=== PATIENT | female | born 2000 | race Caucasian/White ===

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

== ENCOUNTER → 2021-06-02 | Outpatient (CLI) | payer BC, MEDICAID ==
[~2021-06-02] MED LIST: EPIN0.3P3 INJ; ESOM20TA PO; FLT11013 INH; GUAN3TAB PO; GUAN3TAB2 PO; HYDR-700 PO; IBUP-30 PO; LORA10TA76 PO; RT-ALBUINH INH; SERT-413 PO; SERT-414 PO; SERT100T PO
--- NOTE | 2021-06-02 18:06 | Diagnostic Imaging Report ---
EXAMINATION: Thoracic spine radiographs, 3 views. COMPARISON: None. HISTORY: 20-year-old female, mid back pain. FINDINGS: The alignment of the thoracic spine is unremarkable. There is no identified compression deformity or fracture. The thoracic disc heights appear well-preserved. IMPRESSION: Unremarkable radiographs of the thoracic spine. Dictated by: Dictated on workstation # [id number]
--- NOTE | 2021-06-02 18:06 | Diagnostic Imaging Report ---
EXAMINATION: PA chest. Right ribs, 3 views. COMPARISON: None. HISTORY: 20-year-old female, right rib and chest pain. FINDINGS: Heart size and mediastinal contours are unremarkable. There is no identified pneumothorax. There is no large pleural effusion. There is no identified focal airspace consolidation. There is a mildly displaced fracture of the right eighth rib laterally. IMPRESSION: 1. Mildly displaced fracture of the right eighth rib laterally. 2. No identified acute cardiopulmonary abnormality. Dictated by: Dictated on workstation # [id number]
== END ==
LOC: RAD 17:34
PROVIDERS: ATTEND Chiropractor
DX: S22.41XA Multiple fractures of ribs, right side, initial encounter for closed fracture (principal)
CPT/HCPCS: 71110; 72072

== ENCOUNTER 2021-06-30 01:33 | Emergency (ER) | payer BC, MEDICAID ==
[~2021-06-30] VITALS: Ht 166 cm; Wt 70.0 kg
[2021-06-30 01:42] VITALS: BP 130/93
[2021-06-30] MEDS ORDERED: LACTATED RINGERS 1,000 ML IV STA (01:52)
--- NOTE | 2021-06-30 01:55 | ED Psychosocial ---
General Chief Complaint: Substance Abuse Stated Complaint: ETOH Source: patient Exam Limitations: intoxication History of Present Illness Date Seen by Provider: June 30, 2021 Time Seen by Provider: 01:45 Initial Comments Patient is a 21-year-old female who presents to the emergency room acutely intoxicated. She is crying, dry heaving complaining of pain in her abdomen. She is a poor historian secondary to her intoxication. She keeps apologizing. She states her grandma recently. She is asking for her girlfriend. She states she drinks Des this evening. Is unable to quantify. Will not otherwise answer questions regarding HPI, review of systems, past medical family or social history. Timing/Duration: this evening Severity: severe Associated Symptoms: ingestion (Alcohol) Allergies and Home Medications Allergies Coded Allergies: No Known Drug Allergies (Unverified , 11/16/17) Patient Home Medication List Home Medication List Reviewed: Yes Albuterol Sulfate (Proair Hfa) 1 Puff Puff, 2 PUFF INH Q4H PRN for SHORTNESS OF BREATH, (Reported) Entered as Reported by: MARIBEL RUSH on 11/17/17851 Epinephrine (Epipen 2-Glen) 0.3 Mg/0.3 Ml Auto.injct, INJ UD PRN for ALLERGIES, (Reported) Entered as Reported by: MARIBEL RUSH on 11/17/17851 Esomeprazole Magnesium (Nexium 24Hr) 20 Mg Tablet.dr, 20 MG PO BID, (Reported) Entered as Reported by: MARIBEL RUSH on 11/17/17851 Fluticasone Propionate (Flovent Hfa 110 mcg) 1 Ea Aero, 1 PUFF INH BID PRN for SHORTNESS OF BREATH, (Reported) Entered as Reported by: MARIBEL RUSH on 11/17/17851 Guanfacine HCl (Guanfacine HCl ER) 3 Mg Tab.er.24h, 3 MG PO DAILY, (Reported) Entered as Reported by: MARIBEL RUSH on 11/17/17851 Hydroxyzine HCl (Hydroxyzine HCl) 25 Mg Tablet, 25 MG PO TID PRN for ANXIETY, (Reported) Entered as Reported by: MARIBEL RUSH on 11/17/17851 Ibuprofen (Advil) 200 Mg Tablet, 600-800 MG PO TID PRN for PAIN-MILD, (Reported) Entered as Reported by: MARIBEL RUSH on 11/17/17851 Loratadine (Claritin) 10 Mg Tablet, 10 MG PO DAILY, (Reported) Entered as Reported by: MARIBEL RUSH on 11/17/17851 Sertraline HCl (Sertraline HCl) 50 Mg Tablet, 50 MG PO DAILY, (Reported) Entered as Reported by: MARIBEL RUSH on 11/17/17851 Sertraline HCl (Sertraline HCl) 100 Mg Tablet, 100 MG PO DAILY, (Reported) Entered as Reported by: MARIBEL RUSH on 11/17/17851 Review of Systems Constitutional: see HPI Gastrointestinal: abdominal pain, nausea, vomiting Review of systems limited secondary to the patient's alcohol intoxication Past Gdgbgiq-Jgmtjq-Qssoof Hx Seasonal Allergies Seasonal Allergies: No Past Medical History Surgeries: No Respiratory: No Cardiac: No Neurological: No Genitourinary: No Gastrointestinal: Yes Gastroesophageal Reflux Musculoskeletal: No Endocrine: No Cancer: No Psychosocial: Yes (CUTTING. STATES NOT DONE FOR 1 YEAR.) ADD/ADHD, Anxiety, Depression Integumentary: Yes (CUT NUNEZ ON ARMS) Blood Disorders: No Physical Exam Vital Signs - First Documented 06/30/21 01:42 Pulse 102 Resp 24 B/P (MAP) 130/93 (105) Pulse Ox 99 O2 Delivery Room Air Capillary Refill : Height, Weight, BMI Height: 5'7.00" Weight: 195lbs. 6.0oz. 88.358675cu; 30.3 BMI Method: General Appearance: WD/WN, severe distress (Crying, writhing around in the bed, difficult to communicate with secondary to her intoxication) HEENT: PERRL/EOMI Neck: full range of motion Respiratory: lungs clear, normal breath sounds, no respiratory distress, no accessory muscle use Cardiovascular: regular rate, rhythm Gastrointestinal: normal bowel sounds, non tender, soft Extremities: normal range of motion, other (No obvious signs of trauma) Neurologic/Psychiatric: alert, depressed affect (Crying) Appearance/Memory: disheveled Behavior/Eye Contact: avoids eye contact, uncooperative, other (Slurred speech) Skin: normal color, other (Diaphoretic) Progress/Results/Core Measures Results/Orders Lab Results Laboratory Tests Test 06/30/21 01:50 Range/Units White Blood Count 12.9 H 4.3-11.0 10^3/uL Red Blood Count 4.73 3.80-5.11 10^6/uL Hemoglobin 15.9 11.5-16.0 g/dL Hematocrit 45 35-52 % Mean Corpuscular Volume 95 80-99 fL Mean Corpuscular Hemoglobin 34 25-34 pg Mean Corpuscular Hemoglobin Concent 35 32-36 g/dL Red Cell Distribution Width 12.5 10.0-14.5 % Platelet Count 304 130-400 10^3/uL Mean Platelet Volume 8.7 L 9.0-12.2 fL Immature Granulocyte % (Auto) 0 % Neutrophils (%) (Auto) 64 42-75 % Lymphocytes (%) (Auto) 30 12-44 % Monocytes (%) (Auto) 4 0-12 % Eosinophils (%) (Auto) 1 0-10 % Basophils (%) (Auto) 0 0-10 % Neutrophils # (Auto) 8.2 H 1.8-7.8 10^3/uL Lymphocytes # (Auto) 3.9 1.0-4.0 10^3/uL Monocytes # (Auto) 0.6 0.0-1.0 10^3/uL Eosinophils # (Auto) 0.1 0.0-0.3 10^3/uL Basophils # (Auto) 0.1 0.0-0.1 10^3/uL Immature Granulocyte # (Auto) 0.0 0.0-0.1 10^3/uL Sodium Level 141 135-145 MMOL/L Potassium Level 4.0 3.6-5.0 MMOL/L Chloride Level 109 H 98-107 MMOL/L Carbon Dioxide Level 17 L 21-32 MMOL/L Anion Gap 15 H 5-14 MMOL/L Blood Urea Nitrogen 6 L 7-18 MG/DL Creatinine 0.73 0.60-1.30 MG/DL Estimat Glomerular Filtration Rate 120 BUN/Creatinine Ratio 8 Glucose Level 106 H 70-105 MG/DL Calcium Level 9.4 8.5-10.1 MG/DL Corrected Calcium 8.5-10.1 MG/DL Total Bilirubin 0.4 0.1-1.0 MG/DL Aspartate Amino Transf (AST/SGOT) 18 5-34 U/L Alanine Aminotransferase (ALT/SGPT) 14 0-55 U/L Alkaline Phosphatase 65 40-136 U/L Total Protein 7.7 6.4-8.2 GM/DL Albumin 4.6 H 3.2-4.5 GM/DL Serum Test, Qualitative NEGATIVE NEGATIVE Serum Alcohol 201 H <10 MG/DL My Orders Orders - DOREEN ALVAREZ MD Ed Iv/Invasive Line Start (06/30/21 01:52) Comprehensive Metabolic Panel (06/30/21 01:52) Alcohol (06/30/21 01:52) Cbc With Automated Diff (06/30/21 01:52) Hcg,Qualitative Serum (06/30/21 01:52) Lactated Ringers (Lr 1000 Ml Iv Solution (06/30/21 01:52) Ondansetron Injection (Zofran Injectio (06/30/21 02:00) Pantoprazole Injection (Protonix Injecti (06/30/21 02:00) Medications Given in ED Current Medications Medications Dose Ordered Sig/Lazaro Route Start Time Stop Time Status Last Admin Dose Admin Ondansetron HCl 8 mg ONCE ONCE IVP 06/30/21 02:00 06/30/21 02:01 DC 06/30/21 02:00 8 MG Pantoprazole 40 mg ONCE ONCE IV 06/30/21 02:00 06/30/21 02:01 DC 06/30/21 02:00 40 MG Vital Signs/I&O 06/30/21 01:42 Pulse 102 Resp 24 B/P (MAP) 130/93 (105) Pulse Ox 99 O2 Delivery Room Air Progress Progress Note : Time: 03:19 Progress Note Patient feels much better after nausea medicine, Protonix and IV fluids. She has been up and ambulatory to the bathroom. Speech is clear, no confusion or disorientation. Girlfriend is at the bedside will take her home. Patient is counseled on return precautions. She is counseled on alcohol use. She is understanding. All questions are sought and answered. Departure Impression Primary Impression: Acute alcoholic intoxication Qualified Codes: F10.920 - Alcohol use, unspecified with intoxication, uncomplicated Disposition: 01 HOME, SELF-CARE Condition: Improved Departure-Patient Inst. Decision time for Depature: 03:10 Referrals: [facility] (PCP/Family) Primary Care Physician Patient Instructions: ALCOHOL AND SUBSTANCE ABUSE, Alcohol Intoxication ED Add. Discharge Instructions: Drink plenty of fluids to stay well-hydrated today. Take your acid reflux medications as prescribed. Tylenol extra strength, 2 tablets every 6 hours as needed for pain/headache. Follow-up with your primary care physician. Return to the emergency department for any new, concerning or emergent complaints. DOREEN ALVAREZ MD June 30, 2021 01:55
[2021-06-30 01:58] LABS: BASOPHILS # (AUTO) 0.1 10^3/uL (0.0-0.1); BASOPHILS % (AUTO) 0 % (0-10); EOSINOPHILS # (AUTO) 0.1 10^3/uL (0.0-0.3); EOSINOPHILS % (AUTO) 1 % (0-10); HEMATOCRIT 45 % (35-52); HEMOGLOBIN 15.9 g/dL (11.5-16.0); LYMPHOCYTES # (AUTO) 3.9 10^3/uL (1.0-4.0); LYMPHOCYTES % (AUTO) 30 % (12-44); MEAN CORPUSCULAR HEMOGLOBIN 34 pg (25-34); MEAN CORPUSCULAR HGB CONC 35 g/dL (32-36); MEAN CORPUSCULAR VOLUME 95 fL (80-99); MEAN PLATELET VOLUME 8.7 fL (9.0-12.2); MONOCYTES # (AUTO) 0.6 10^3/uL (0.0-1.0); MONOCYTES % (AUTO) 4 % (0-12); NEUTROPHILS # (AUTO) 8.2 10^3/uL (1.8-7.8); NEUTROPHILS % (AUTO) 64 % (42-75); PLATELET COUNT 304 10^3/uL (130-400); WHITE BLOOD COUNT 12.9 10^3/uL (4.3-11.0)
[2021-06-30] MEDS ORDERED: PANTOPRAZOLE 40 MG (PROTONIX) VIAL IV ONE (02:00)
[2021-06-30] MEDS ORDERED: ONDANSETRON 4 MG/2 ML (SDV) Z0FRAN IVP ONE (02:00)
[2021-06-30 02:14] LABS: ALBUMIN 4.6 GM/DL (3.2-4.5); CHLORIDE 109 MMOL/L (98-107); SODIUM 141 MMOL/L (135-145)
[2021-06-30 02:15] LABS: CALCIUM 9.4 MG/DL (8.5-10.1)
[2021-06-30 02:16] LABS: GLUCOSE 106 MG/DL (70-105); TOTAL PROTEIN 7.7 GM/DL (6.4-8.2)
[2021-06-30 02:17] LABS: CARBON DIOXIDE 17 MMOL/L (21-32)
[2021-06-30 02:18] LABS: BILIRUBIN,TOTAL 0.4 MG/DL (0.1-1.0)
[2021-06-30 02:20] LABS: ALKALINE PHOSPHATASE 65 U/L (40-136); CREATININE SERUM 0.73 MG/DL (0.60-1.30); GFR ESTIMATED 120
[2021-06-30 02:21] LABS: BUN/CREATININE RATIO 8
[2021-06-30 02:23] LABS: ALANINE AMINOTRANSFERASE 14 U/L (0-55)
== END 2021-06-30 03:30 | disposition home or self-care (01) ==
LOC: EDUNIT# 01:33 → ER 01:35
DX: F10.129 Alcohol abuse with intoxication, unspecified (principal); Y90.7 Blood alcohol level of 200-239 mg/100 ml; Z32.02 Encounter for pregnancy test, result negative
CPT/HCPCS: 80053; 84703; 85025; 99284; G0480; 36415; 80320

== ENCOUNTER 2022-06-28 08:05 | Emergency (ER) | payer BC, MEDICAID ==
[~2022-06-28] VITALS: Ht 172.7 cm; Wt 68.0 kg
[~2022-06-28 08:05] MED LIST changes: +ALBU8.5H6 INH; -RT-ALBUINH INH
--- NOTE | 2022-06-28 08:13 | ED General ---
General Stated Complaint: FALL | RIB INJ Source of Information: Patient Exam Limitations: No Limitations History of Present Illness Date Seen by Provider: June 28, 2022 Time Seen by Provider: 08:11 Initial Comments 21-year-old female presents to the emergency department today for left lower rib pain. Symptoms started on Tuesday when she was intoxicated and fell, striking a curb. She does not really recall the event but did not hit her head or lose consciousness. She states she moved this morning and felt a pop which increased her pain. He has no specific shortness of breath but it does hurt to take a deep breath. No change in bowel or bladder habits, abdominal pain. All other systems reviewed and negative except documented per HPI. Voice recognition software was used to help create this chart Allergies and Home Medications Allergies Coded Allergies: No Known Drug Allergies (Unverified , 11/16/17) Patient Home Medication List Home Medication List Reviewed: Yes Albuterol Sulfate (Ventolin Hfa) 1 Puff Puff, 2 PUFF INH Q4H PRN for SHORTNESS OF BREATH, (Reported) Entered as Reported by: MARIBEL RUSH on 11/17/17851 Epinephrine (Epipen 2-Glen) 0.3 Mg/0.3 Ml Auto.injct, INJ UD PRN for ALLERGIES, (Reported) Entered as Reported by: MARIBEL RUSH on 11/17/17851 Esomeprazole Magnesium (Nexium 24Hr) 20 Mg Tablet.dr, 20 MG PO BID, (Reported) Entered as Reported by: MARIBEL RUSH on 11/17/17851 Fluticasone Propionate (Flovent Hfa 110 mcg) 1 Ea Aero, 1 PUFF INH BID PRN for SHORTNESS OF BREATH, (Reported) Entered as Reported by: MARIBEL RUSH on 11/17/17851 Guanfacine HCl (Guanfacine HCl ER) 3 Mg Tab.er.24h, 3 MG PO DAILY, (Reported) Entered as Reported by: MARIBEL RUSH on 11/17/17851 Hydroxyzine HCl (Hydroxyzine HCl) 25 Mg Tablet, 25 MG PO TID PRN for ANXIETY, (Reported) Entered as Reported by: MARIBEL RUSH on 11/17/17851 Ibuprofen (Advil) 200 Mg Tablet, 600-800 MG PO TID PRN for PAIN-MILD, (Reported) Entered as Reported by: MARIBEL RUSH on 11/17/17851 Loratadine (Claritin) 10 Mg Tablet, 10 MG PO DAILY, (Reported) Entered as Reported by: MARIBEL RUSH on 11/17/17851 Sertraline HCl (Sertraline HCl) 50 Mg Tablet, 50 MG PO DAILY, (Reported) Entered as Reported by: MARIBEL RUSH on 11/17/17851 Sertraline HCl (Sertraline HCl) 100 Mg Tablet, 100 MG PO DAILY, (Reported) Entered as Reported by: MARIBEL RUSH on 11/17/17851 Review of Systems Review of Systems Constitutional: see HPI Past Efjscgz-Owffhn-Xcdami Hx Patient Social History Tobacco Use?: No Use of E-Cig and/or Vaping dev: No Substance use?: No Alcohol Use?: Yes Immunizations Up To Date First/Initial COVID19 Vaccinat: 2020 Second COVID19 Vaccination Heladio: 2021 Seasonal Allergies Seasonal Allergies: No Past Medical History Surgeries: No Respiratory: No Cardiac: No Neurological: No Genitourinary: No Gastrointestinal: Yes Gastroesophageal Reflux Musculoskeletal: No Endocrine: No Cancer: No Psychosocial: Yes (CUTTING. STATES NOT DONE FOR 1 YEAR.) ADD/ADHD, Anxiety, Depression Integumentary: Yes (CUT NUNEZ ON ARMS) Blood Disorders: No Physical Exam Vital Signs Vital Signs - First Documented 06/28/22 08:14 Temp 36.7 Pulse 78 Resp 16 B/P (MAP) 123/81 (95) Pulse Ox 100 O2 Delivery Room Air Capillary Refill : Height, Weight, BMI Height: 5'7.00" Weight: 195lbs. 6.0oz. 88.521725fb; 25.00 BMI Method: General Appearance: No Apparent Distress, WD/WN HEENT: PERRL/EOMI, Normal ENT Inspection, Pharynx Normal Neck: Normal Inspection, Non Tender, Supple Respiratory: Lungs Clear, Normal Breath Sounds, No Accessory Muscle Use, Other (Tenderness palpation left lateral chest wall inferiorly. No crepitus or deformity. No bruising.) Cardiovascular: Regular Rate, Rhythm, No Murmur, Normal Peripheral Pulses Gastrointestinal: Normal Bowel Sounds, Non Tender, Soft Back: Normal Inspection, No Vertebral Tenderness Extremity: Normal Capillary Refill, Normal Inspection, Non Tender Neurologic/Psychiatric: Alert, Oriented x3, Normal Mood/Affect Skin: Normal Color, Warm/Dry Progress/Results/Core Measures Suspected Sepsis SIRS Temperature: Pulse: Respiratory Rate: Blood Pressure / Mean: Results/Orders My Orders Orders - STALIN FERNANDEZ DO Chest Pa/Lat (2 View) (06/28/22 08:16) Ketorolac Injection (Toradol Injection) (06/28/22 08:30) Vital Signs/I&O 06/28/22 08:14 Temp 36.7 Pulse 78 Resp 16 B/P (MAP) 123/81 (95) Pulse Ox 100 O2 Delivery Room Air Capillary Refill : Departure Communication (Admissions) Differential diagnosis includes rib fractures, rib contusion, pneumothorax. No evidence for rib fractures on chest x-ray on my independent review. No other cardiopulmonary or bony abnormality. Leaving the emergency department will be discharged with p.o. Toradol Recommendations reviewed breathing exercises at home for the pneumonia. She states understanding. Impression Primary Impression: Rib pain Disposition: HOME, SELF-CARE Condition: Stable Departure-Patient Inst. Referrals: [facility] [place] Primary Care Physician Patient Instructions: Bruised Rib (DC) Add. Discharge Instructions: Medication prescribed as needed. Do not take any other anti-inflammatory medications while taking it he may take Tylenol in addition. Perform deep breathing exercises to prevent pneumonia as discussed in the emergency department. Return to the emergency department for any severe concerns for Scripts Ketorolac Tromethamine (Ketorolac Tromethamine) 10 Mg Tablet 10 MG PO TID for Pain for 3 Days, #9 TAB Prov: STALIN FERNANDEZ DO 06/28/22 STALIN FERNANDEZ DO June 28, 2022 08:13
[2022-06-28] MEDS ORDERED: KETOROLAC 15 MG/ML VIAL IM ONE (08:30)
[2022-06-28] MEDS ORDERED: KETO10TA PO (08:49)
--- NOTE | 2022-06-28 08:54 | Diagnostic Imaging Report ---
INDICATION: L rib pain after fall. TECHNIQUE: Two view chest 8:51 AM CORRELATION STUDY: 06/02/2021 FINDINGS: The heart size, mediastinal configuration and pulmonary vasculature are within normal limits. The lungs are clear with no consolidating infiltrate. There is no significant pleural effusion or pneumothorax. Visualized osseous structures are unremarkable. IMPRESSION: 1. Negative for acute traumatic abnormality of the chest. Dictated by: Dictated on workstation # [id number]
[2022-06-28 09:01] VITALS: BP 123/81
== END 2022-06-28 09:01 | disposition home or self-care (01) ==
LOC: EDUNIT# 08:05 → ER 08:09
DX: R07.81 Pleurodynia (principal); W18.30XA Fall on same level, unspecified, initial encounter; W22.09XA Striking against other stationary object, initial encounter; X50.1XXA Overexertion from prolonged static or awkward postures, initial encounter
CPT/HCPCS: 71046; 99281

== ENCOUNTER 2022-08-10 10:23 | Emergency (ER) | payer BC, MEDICAID ==
[~2022-08-10] VITALS: Ht 172 cm; Wt 67.0 kg
[~2022-08-10 10:23] MED LIST changes: +KETO10TA PO
--- NOTE | 2022-08-10 10:58 | ED Chest Pain ---
General Chief Complaint: Chest Wall Stated Complaint: UPPER RIB PAIN Nursing Triage Note: PT STATES LT UPPER RIBS, LT SHOULDER AND BACK PAIN THAT STARTED YESTERDAY MORNING, PT STATES SHE DRANK THE NIGHT BEFORE THAT BUT DID NOT FALL OR ANYTHING, THIS HAPPENED ABOUT 2 MONTHS AGO AND PT HAD LT LOWER RIB PAIN THEN, ALSO AFTER A NIGHT OF DRINKING Source: patient Exam Limitations: no limitations History of Present Illness Date Seen by Provider: Aug 10, 2022 Time Seen by Provider: 10:42 Initial Comments Patient is a 22-year-old who presents to the emergency department with a chief complaint of left upper rib pain. Its been bothering her for a couple of days. She cannot recall any discrete trauma. She has been drinking a little bit and going out to the river and having some more activities. She has had an episode of rib pain similar to this in the past. She has not taken any medication for the pain today. It hurts to take a deep breath. No productive cough, no fevers no chills. No rashes. The pain radiates directly into her back along approximately ribs 3-4. Timing/Duration: 1-2 days Severity/Quality: sharp Location: other (left upper chest/rib) Radiation: back Activities at Onset: activity Modifying Factors: worse with breathing, worse with movement Associated Symptoms: denies symptoms Allergies and Home Medications Allergies Coded Allergies: No Known Drug Allergies (Unverified , 11/16/17) Patient Home Medication List Home Medication List Reviewed: Yes Albuterol Sulfate (Ventolin Hfa) 1 Puff Puff, 2 PUFF INH Q4H PRN for SHORTNESS OF BREATH, (Reported) Entered as Reported by: MARIBEL RUSH on 11/17/17851 Epinephrine (Epipen 2-Glen) 0.3 Mg/0.3 Ml Auto.injct, INJ UD PRN for ALLERGIES, (Reported) Entered as Reported by: MARIBEL RUSH on 11/17/17851 Esomeprazole Magnesium (Nexium 24Hr) 20 Mg Tablet.dr, 20 MG PO BID, (Reported) Entered as Reported by: MARIBEL RUSH on 11/17/17851 Fluticasone Propionate (Flovent Hfa 110 mcg) 1 Ea Aero, 1 PUFF INH BID PRN for SHORTNESS OF BREATH, (Reported) Entered as Reported by: MARIBEL RUSH on 11/17/17851 Guanfacine HCl (Guanfacine HCl ER) 3 Mg Tab.er.24h, 3 MG PO DAILY, (Reported) Entered as Reported by: MARIBEL RUSH on 11/17/17851 Hydroxyzine HCl (Hydroxyzine HCl) 25 Mg Tablet, 25 MG PO TID PRN for ANXIETY, (Reported) Entered as Reported by: MARIBEL RUSH on 11/17/17851 Ibuprofen (Advil) 200 Mg Tablet, 600-800 MG PO TID PRN for PAIN-MILD, (Reported) Entered as Reported by: MARIBEL RUSH on 11/17/17851 Ketorolac Tromethamine (Ketorolac Tromethamine) 10 Mg Tablet, 10 MG PO TID Prescribed by: STALIN FERNANDEZ MD on 06/28/22848 Loratadine (Claritin) 10 Mg Tablet, 10 MG PO DAILY, (Reported) Entered as Reported by: MARIBEL RUSH on 11/17/17851 Sertraline HCl (Sertraline HCl) 50 Mg Tablet, 50 MG PO DAILY, (Reported) Entered as Reported by: MARIBEL RUSH on 11/17/17851 Sertraline HCl (Sertraline HCl) 100 Mg Tablet, 100 MG PO DAILY, (Reported) Entered as Reported by: MARIBEL RUSH on 11/17/17851 Review of Systems Review of Systems Constitutional: see HPI Respiratory: No Symptoms Reported Cardiovascular: Chest Pain Gastrointestinal: No Symptoms Reported Genitourinary: See HPI Musculoskeletal: back pain Skin: no symptoms reported All Other Systems Reviewed Negative Unless Noted: Yes Past Jdysefr-Fczaql-Khhyhr Hx Patient Social History Tobacco Use?: Yes Tobacco type used: Cigarettes Use of E-Cig and/or Vaping dev: Yes E-Cig or Vaping type used: Nicotine Substance use?: Yes Substance type: Marijuana Alcohol Use?: Yes Alcohol type: Hard Liquor Alcohol Frequency: Once in a while Immunizations Up To Date First/Initial COVID19 Vaccinat: 2020 Second COVID19 Vaccination Heladio: 2021 Third COVID19 Vaccination Date: 2020 Seasonal Allergies Seasonal Allergies: No Past Medical History Surgery/Hospitalization HX: UPPER GI, COLONOSCOPY, [place], DENTAL, TONSILS Surgeries: No Respiratory: No Cardiac: No Neurological: No Last Menstrual Period: Jul 20, 2022 Genitourinary: No Gastrointestinal: Yes Gastroesophageal Reflux Musculoskeletal: No Endocrine: No Cancer: No Psychosocial: Yes (CUTTING. STATES NOT DONE FOR 1 YEAR.) ADD/ADHD, Anxiety, Depression Integumentary: Yes (CUT NUNEZ ON ARMS) Blood Disorders: No Physical Exam Vital Signs Vital Signs - First Documented 08/10/22 10:30 Temp 35.6 Pulse 88 Resp 20 B/P (MAP) 111/76 (88) Pulse Ox 97 O2 Delivery Room Air Capillary Refill : Less Than 3 Seconds Height, Weight, BMI Height: 5'7.00" Weight: 195lbs. 6.0oz. 88.208870uh; 22.00 BMI Method: General Appearance: No Apparent Distress, WD/WN HEENT: PERRL/EOMI Respiratory: Lungs Clear, Normal Breath Sounds, No Accessory Muscle Use, No Re spiratory Distress, Other (significant tenderness to the left upper chest wall - about rib 3. slightly swollen; no erythema. no warmth. tenderness on the opposite side of the rib on the back as well) Cardiovascular: Regular Rate, Rhythm, Normal Peripheral Pulses Extremity: Normal Inspection, Normal Range of Motion Neurologic/Psychiatric: Alert, Oriented x3, No Motor/Sensory Deficits, Normal Mood/Affect Skin: Normal Color, Warm/Dry Progress/Results/Core Measures Results/Orders My Orders Orders - DOREEN ALVAREZ MD Chest 1 View, Ap/Pa Only (08/10/22 10:55) Ketorolac Injection (Toradol Injection) (08/10/22 11:45) Vital Signs/I&O 08/10/22 10:30 Temp 35.6 Pulse 88 Resp 20 B/P (MAP) 111/76 (88) Pulse Ox 97 O2 Delivery Room Air Blood Pressure Mean: 88 Progress Progress Note : Time: 11:40 Progress Note Patient counseled on excessive drinking as well as smoking/vaping. Advised to take lerj-wsz-ctxfhqs ibuprofen for further pain. Return precautions provided in both verbal and written format. Chest x-ray does not show any acute abnormality. Diagnostic Imaging Diagonstic Imaging: Xray Comments [facility], [place] NAME: INEZ SEGOVIA MED REC#: [id number] PT STATUS: REG ER : 2000 PHYSICIAN: DOREEN ALVAREZ MD ADMIT DATE: 08/10/22/ER Draft Date of Exam:08/10/22 CHEST 1 VIEW, AP/PA ONLY PATIENT HISTORY: left upper chest pain. TECHNIQUE: Single frontal view of the chest. COMPARISON: 06/28/2022 FINDINGS: The lung volumes are normal. No focal consolidation is seen. No large pleural effusion or pneumothorax is seen. The cardiomediastinal silhouette is normal in size and contour. No acute osseous abnormality is seen. IMPRESSION: No acute pulmonary abnormality seen. Dictated on workstation # [id number] Dict: 08/10/22 1106 Trans: 08/10/22 1108 [facility] [id number] Interpreted by: MILA MOBLEY MD Electronically signed by: Counseling-Symptomatic: 3-10 Minutes Follow-up with PCP to: Discuss Further Options Departure Impression Primary Impression: Rib pain Disposition: 01 HOME, SELF-CARE Condition: Stable Departure-Patient Inst. Decision time for Depature: 11:41 Referrals: [facility] [place] (PCP/Family) Primary Care Physician Patient Instructions: Costochondritis (DC) Add. Discharge Instructions: Drink plenty of fluids to stay well-hydrated. This evening with dinner you can take 3 oqzd-atf-xqeybgi ibuprofen which is 600 mg. You can take this every 6 hours as needed for pain. If you develop a fever, shortness of breath, productive cough please return to the emergency department for reevaluation. Copy Copies To 1: XIMENA MALAVE KATHRYN M MD Aug 10, 2022 10:58
--- NOTE | 2022-08-10 11:08 | Diagnostic Imaging Report ---
PATIENT HISTORY: left upper chest pain. TECHNIQUE: Single frontal view of the chest. COMPARISON: 06/28/2022 FINDINGS: The lung volumes are normal. No focal consolidation is seen. No large pleural effusion or pneumothorax is seen. The cardiomediastinal silhouette is normal in size and contour. No acute osseous abnormality is seen. IMPRESSION: No acute pulmonary abnormality seen. Dictated by: Dictated on workstation # [id number]
[2022-08-10] MEDS ORDERED: KETOROLAC 60 MG/2 ML VIAL IM ONE (11:45)
[2022-08-10 11:55] VITALS: BP 111/76
== END 2022-08-10 11:55 | disposition home or self-care (01) ==
LOC: EDUNIT# 10:23 → ER 10:25
DX: R07.81 Pleurodynia (principal); F17.210 Nicotine dependence, cigarettes, uncomplicated
CPT/HCPCS: 71045

== ENCOUNTER 2022-09-16 01:35 | Emergency (ER) | payer BC, MEDICAID ==
[~2022-09-16] VITALS: Ht 170 cm; Wt 74.8 kg
[2022-09-16 01:40] VITALS: BP 121/91
--- NOTE | 2022-09-16 01:50 | ED Fall/Injury ---
General Stated Complaint: FALL/BACK OF HEAD LAC Source: patient Exam Limitations: intoxication History of Present Illness Date Seen by Provider: Sep 16, 2022 Time Seen by Provider: 01:49 Initial Comments Patient is a 22-year-old female who presents to the emergency department intoxicated, she was sitting on the back of a car and fell off backwards onto the ground. Sustained a small 1-1/2 cm laceration to posterior scalp. No loss of consciousness reported. She is also complaining of severe what appears to be poison jeniffer to her buttocks and upper posterior thighs. She has had this for several days. It is quite itchy. She has no known drug allergies. No other complaints of injury. Mild headache. Occurred: just prior to arrival Severity: mild Injuries/Pain Location: head Context: lost balance Loss of Consciousness: no loss of consciousness Associated Symptoms (Fall): Other (rash to buttocks) Allergies and Home Medications Allergies Coded Allergies: No Known Drug Allergies (Unverified , 11/16/17) Patient Home Medication List Home Medication List Reviewed: Yes Albuterol Sulfate (Ventolin Hfa) 1 Puff Puff, 2 PUFF INH Q4H PRN for SHORTNESS OF BREATH, (Reported) Entered as Reported by: MARIBEL RUSH on 11/17/17 0852 Epinephrine (Epipen 2-Glen) 0.3 Mg/0.3 Ml Auto.injct, INJ UD PRN for ALLERGIES, (Reported) Entered as Reported by: MARIBEL RUSH on 11/17/17 08 Esomeprazole Magnesium (Nexium 24Hr) 20 Mg Tablet.dr, 20 MG PO BID, (Reported) Entered as Reported by: MARIBEL RUSH on 11/17/17 08 Fluticasone Propionate (Flovent Hfa 110 mcg) 1 Ea Aero, 1 PUFF INH BID PRN for SHORTNESS OF BREATH, (Reported) Entered as Reported by: MARIBEL RUSH on 11/17/17 08 Guanfacine HCl (Guanfacine HCl ER) 3 Mg Tab.er.24h, 3 MG PO DAILY, (Reported) Entered as Reported by: MARIBEL RUSH on 11/17/17 08 Hydroxyzine HCl (Hydroxyzine HCl) 25 Mg Tablet, 25 MG PO TID PRN for ANXIETY, (Reported) Entered as Reported by: MARIBEL RUSH on 11/17/17851 Ibuprofen (Advil) 200 Mg Tablet, 600-800 MG PO TID PRN for PAIN-MILD, (Reported) Entered as Reported by: MARIBEL RUSH on 11/17/17851 Ketorolac Tromethamine (Ketorolac Tromethamine) 10 Mg Tablet, 10 MG PO TID Prescribed by: STALIN FERNANDEZ MD on 06/28/22848 Loratadine (Claritin) 10 Mg Tablet, 10 MG PO DAILY, (Reported) Entered as Reported by: MARIBEL RUSH on 11/17/17851 Sertraline HCl (Sertraline HCl) 50 Mg Tablet, 50 MG PO DAILY, (Reported) Entered as Reported by: MARIBEL RUSH on 11/17/17851 Sertraline HCl (Sertraline HCl) 100 Mg Tablet, 100 MG PO DAILY, (Reported) Entered as Reported by: MARIBEL RUSH on 11/17/17851 Review of Systems Review of Systems Constitutional: see HPI Eyes: No Symptoms Reported Respiratory: no symptoms reported Cardiovascular: no symptoms reported Gastrointestinal: no symptoms reported Genitourinary: no symptoms reported Musculoskeletal: no symptoms reported Skin: rash (buttocks/upper thighs; 1.5 cm posterior scalp laceration) Past Dnfxjld-Tuigpl-Ntqxdd Hx Immunizations Up To Date First/Initial COVID19 Vaccinat: 2020 Second COVID19 Vaccination Heladio: 2021 Third COVID19 Vaccination Date: 2020 Seasonal Allergies Seasonal Allergies: No Past Medical History Surgery/Hospitalization HX: UPPER GI, COLONOSCOPY, [place], DENTAL, TONSILS Surgeries: No Respiratory: No Cardiac: No Neurological: No Genitourinary: No Gastrointestinal: Yes Gastroesophageal Reflux Musculoskeletal: No Endocrine: No Cancer: No Psychosocial: Yes (CUTTING. STATES NOT DONE FOR 1 YEAR.) ADD/ADHD, Anxiety, Depression Integumentary: Yes (CUT NUNEZ ON ARMS) Blood Disorders: No Physical Exam Vital Signs Vital Signs - First Documented 09/16/22 01:40 Temp 36.7 Pulse 123 Resp 18 B/P (MAP) 121/91 (101) Pulse Ox 98 O2 Delivery Room Air Capillary Refill : Height, Weight, BMI Height: 5'7.00" Weight: 195lbs. 6.0oz. 88.699510gl; 22.00 BMI Method: General Appearance: WD/WN, no apparent distress, other (obviously intoxicated) HEENT: PERRL/EOMI, other (1.5cm laceration to the posterior scalp - no active bleeding) Neck: non-tender, full range of motion Cardiovascular: regular rate, rhythm Respiratory: lungs clear, normal breath sounds, no respiratory distress, no accessory muscle use Gastrointestinal: non tender, soft Extremities: normal range of motion, non-tender, normal inspection Neurologic/Psychiatric: alert, normal mood/affect, oriented x 3 Skin: normal color, warm/dry, rash (erythematous dermatitis to the bilateral lower buttocks and internal thigs with blisters) Antwan Coma Score Best Eye Response: (4) Open Spontaneously Best Verbal Response: (5) Oriented Best Motor Response: (6) Obeys Commands Procedures/Interventions Wound Location: Scalp Other Wound Location posterior scalp Wound Length (cm): 1.5 Wound's Depth, Shape: linear Wound Explored: clean Irrigated w/ Saline (ccs): 200 Betadine Prep?: No Anesthesia: Lidocaine w/ Epi Volume Anesthetic (ccs): 3 Staple Repair: Stapler 35W Number of Sutures: 2 Layer Closure?: 1 Number Deep Layer Sutures: 0 Sterile Dressing Applied?: No Progress/Results/Core Measures Results/Orders My Orders Orders - DOREEN ALVAREZ MD Dipht/Pertuss(Acell)/Tet Adult (Dipht/Pe (09/16/22 01:45) Lidocaine 2% W/Epi 1:100,000 (Lidocaine (09/16/22 01:45) Dexamethasone Injection (Decadron Injec (09/16/22 02:00) Lidocaine 2% W/Epi 1:200,000 (Lidocaine (09/16/22 02:01) Medications Given in ED Current Medications Medications Dose Ordered Sig/Lazaro Route Start Time Stop Time Status Last Admin Dose Admin Dexamethasone Sodium Phosphate 8 mg ONCE ONCE IM 09/16/22 02:00 09/16/22 02:01 DC 09/16/22 02:07 8 MG Diphtheria/ Tetanus/Acell Pertussis 0.5 ml ONCE ONCE IM 09/16/22 01:45 09/16/22 01:47 DC 09/16/22 02:06 0.5 ML Vital Signs/I&O 09/16/22 01:40 Temp 36.7 Pulse 123 Resp 18 B/P (MAP) 121/91 (101) Pulse Ox 98 O2 Delivery Room Air Departure Impression Primary Impression: Scalp laceration Qualified Codes: S01.01XA - Laceration without foreign body of scalp, initial encounter Additional Impressions: Contact dermatitis Qualified Codes: L24.7 - Irritant contact dermatitis due to plants, except food Alcohol intoxication Qualified Codes: F10.920 - Alcohol use, unspecified with intoxication, uncomplicated Minor head injury without loss of consciousness Qualified Codes: S09.90XA - Unspecified injury of head, initial encounter Disposition: 01 HOME, SELF-CARE Condition: Stable Departure-Patient Inst. Decision time for Depature: 02:14 Referrals: [facility] (PCP/Family) Primary Care Physician Patient Instructions: Laceration Repair With [facility] ED Add. Discharge Instructions: The elias will need to be removed in 10 days - please come back to the Emergency Department (it is part of this visit) to have them removed. Keep your rash clean and covered - the steroid should help speed up the healing. You can use an over the counter steroid cream on the rash - such as cortaid. Follow packaging instructions. Over the counter Ibuprofen 3 pills (600mg) every 6 hours with food for headache/pain as needed. Always take ibuprofen with food. Return to the Emergency Department for any new, concerning or emergent complaints. Copy Copies To 1: XIMENA MALAVE KATHRYN M MD Sep 16, 2022 01:50
[2022-09-16] MEDS: Tetanus/Diphtheria/Pertussis (Acell) ADULT Vaccine 0.5 ML IM ONE (02:06)
[2022-09-16] MEDS: dexAMETHasone INJ 4 MG/ML SDV IM ONE (02:07)
[2022-09-16] MEDS: LIDOCAINE 2% w/EPI 1:100,000 20 ML VIAL INJ ONE (02:50)
[2022-09-16] MEDS: LIDOCAINE 2% w/EPI 1:200,000 20 ML VIAL ONE (02:51)
== END 2022-09-16 02:57 | disposition home or self-care (01) ==
LOC: EDUNIT# 01:35 → ER 01:37
DX: S09.90XA Unspecified injury of head, initial encounter (principal); S01.01XA Laceration without foreign body of scalp, initial encounter; L25.9 Unspecified contact dermatitis, unspecified cause; F10.129 Alcohol abuse with intoxication, unspecified; Z23 Encounter for immunization; Z28.310 Unvaccinated for COVID-19; W17.89XA Other fall from one level to another, initial encounter
CPT/HCPCS: 12001; 90715